=== PATIENT | female | born 1955 | race Caucasian/White ===

== ENCOUNTER 2021-03-31 12:17 | Inpatient (IN) | payer OTHER ==
[2021-03-31 14:41] LABS: HEMATOCRIT 35.7 % (32.4-45.2); HEMOGLOBIN 11.4 GM/dL (10.7-15.3); MCH 30.2 pg (25.7-33.7); MCHC 31.8 g/dl (32.0-36.0); MEAN CELL VOLUME 94.8 fl (80-96); MEAN PLT VOLUME 10.5 fl (7.5-11.1); PLATELET COUNT 178 10^3/uL (134-434); RBC 3.77 M/mm3 (3.60-5.2); RDW 17.3 % (11.6-15.6)
[2021-03-31 14:42] LABS: WHITE BLOOD COUNT 6.3 K/mm3 (4.0-10.0)
[2021-03-31] MEDS ORDERED: VANCOMYCIN 1 GM in D5W (PRE-DOCKED) 1,000 MG/250 ML IVPB ONE (14:48)
[2021-03-31 14:56] LABS: CHLORIDE 102 mmol/L (98-107); SODIUM 135 mmol/L (136-145)
[2021-03-31 14:58] LABS: CALCIUM 8.5 mg/dL (8.5-10.1); GLUCOSE,RANDOM 165 mg/dL (74-106)
[2021-03-31 14:59] LABS: ALBUMIN 3.4 g/dl (3.4-5.0); BLOOD UREA NITROGEN 16.9 mg/dL (7-18); CO2 30 mmol/L (21-32)
[2021-03-31 15:02] LABS: CREATININE 0.9 mg/dL (0.55-1.3); SGOT/AST 164 U/L (15-37); SGPT/ALT 147 U/L (13-61)
[2021-03-31 15:03] LABS: BILIRUBIN,TOTAL 0.5 mg/dL (0.2-1); TOT PROT 8.7 g/dl (6.4-8.2)
[2021-03-31 15:04] LABS: ALK PHOS 334 U/L (45-117)
[2021-03-31 15:09] LABS: ANION GAP 4 MMOL/L (8-16)
[2021-03-31 15:20] LABS: ERYTHROCYTE SEDIMENTATION RATE 60 mm/hr (0-30)
[2021-03-31 15:22] LABS: ANISOCYTOSIS 1+; MACROCYTOSIS 0; OVALOCYTE 1+; PLATELET ESTIMATE NORMAL
[2021-03-31] MEDS ORDERED: DAPTOMYCIN 500 MG in SODIUM CHLORIDE 50 ML IVPB ONE (15:23)
[2021-03-31] MEDS ORDERED: VANCOMYCIN 1 GRAM (PRE-DOCKED) 1,000 MG/250 ML BAG IVPB ONE (15:57)
[2021-03-31 17:29] LABS: CALCIUM 8.6 mg/dL (8.5-10.1)
[2021-03-31 17:30] LABS: ALBUMIN 3.2 g/dl (3.4-5.0); BLOOD UREA NITROGEN 17.8 mg/dL (7-18)
[2021-03-31 17:33] LABS: CREATININE 0.9 mg/dL (0.55-1.3)
[2021-03-31 17:34] LABS: BILIRUBIN,TOTAL 0.6 mg/dL (0.2-1); TOT PROT 7.8 g/dl (6.4-8.2)
[2021-03-31] MEDS: INSULIN SLIDING SCALE (NOVOLOG) 1 VIAL SQ SCH ×2 (18:59→22:25)
[2021-03-31] MEDS ORDERED: INSULIN SLIDING SCALE (NOVOLOG) 1 VIAL SQ ONE (19:01)
[2021-03-31] MEDS: HEPARIN NA (PORCINE) 5,000 UNITS/ML 1ML VIAL SQ SCH (22:25)
[2021-04-01 00:17] VITALS: BMI 23.4
[2021-04-01] MEDS: HEPARIN NA (PORCINE) 5,000 UNITS/ML 1ML VIAL SQ SCH (06:15)
[2021-04-01] MEDS: INSULIN SLIDING SCALE (NOVOLOG) 1 VIAL SQ SCH ×4 (06:17→22:26)
[2021-04-01 09:28] LABS: BASO % 0.5 % (0-2.0); EOS % 2.1 % (0-4.5); HEMATOCRIT 35.1 % (32.4-45.2); HEMOGLOBIN 11.1 GM/dL (10.7-15.3); LYMPH % 31.7 % (8-40); MCH 30.1 pg (25.7-33.7); MCHC 31.7 g/dl (32.0-36.0); MEAN CELL VOLUME 94.9 fl (80-96); MONO % 12.4 % (3.8-10.2); NEUT % 53.3 % (42.8-82.8); PLATELET COUNT 164 10^3/uL (134-434); RDW 16.9 % (11.6-15.6)
[2021-04-01 09:30] LABS: INR 1.13 (0.83-1.09); PROTHROMBIN TIME (PATIENT) 13.8 SEC (9.7-13.0)
[2021-04-01 09:32] LABS: ACTIVATED PTT 40.1 SECONDS (25.2-36.5)
[2021-04-01 10:02] LABS: BILIRUBIN,TOTAL 0.4 mg/dL (0.2-1); CREATININE 0.7 mg/dL (0.55-1.3); TOT PROT 7.7 g/dl (6.4-8.2)
[2021-04-01 10:06] LABS: ALBUMIN 3.3 g/dl (3.4-5.0); BLOOD UREA NITROGEN 16.9 mg/dL (7-18)
[2021-04-01 10:10] LABS: MAGNESIUM 1.9 mg/dL (1.8-2.4); PHOSPHOROUS 3.6 mg/dL (2.5-4.9)
[2021-04-01] MEDS: ENOXAPARIN NA (PORCINE) 40 MG/0.4 ML DISP.SYRIN SQ SCH (13:41)
[2021-04-01] MEDS: LOSARTAN POTASSIUM 50 MG TABLET PO SCH (15:07)
[2021-04-01] MEDS: HYDROCHLOROTHIAZIDE 12.5 MG CAPSULE (FP) PO SCH (15:08)
[2021-04-01] MEDS: FUROSEMIDE 20 MG TABLET (FP) PO SCH (15:08)
[2021-04-01] MEDS ORDERED: PT OWN MED DRAWER 7, Y5N ONE (17:49)
[2021-04-01] MEDS: SUCRALFATE 1 GM/10 ML UNIT DOSE CUPS PO SCH ×2 (17:55→22:25)
[2021-04-01] MEDS: DAPTOMYCIN 500 MG in SODIUM CHLORIDE 50 ML IVPB SCH (19:50)
[2021-04-02] MEDS: INSULIN SLIDING SCALE (NOVOLOG) 1 VIAL SQ SCH ×4 (06:27→21:09)
[2021-04-02] MEDS: SUCRALFATE 1 GM/10 ML UNIT DOSE CUPS PO SCH ×4 (06:28→21:09)
[2021-04-02 09:21] LABS: BASO % 0.7 % (0-2.0); EOS % 2.4 % (0-4.5); HEMATOCRIT 33.8 % (32.4-45.2); HEMOGLOBIN 11.1 GM/dL (10.7-15.3); LYMPH % 37.3 % (8-40); MCH 30.8 pg (25.7-33.7); MCHC 32.8 g/dl (32.0-36.0); MEAN CELL VOLUME 94.1 fl (80-96); MEAN PLT VOLUME 9.8 fl (7.5-11.1); MONO % 11.4 % (3.8-10.2); NEUT % 48.2 % (42.8-82.8); PLATELET COUNT 157 10^3/uL (134-434); RDW 17.2 % (11.6-15.6); WHITE BLOOD COUNT 3.8 K/mm3 (4.0-10.0)
[2021-04-02] MEDS: FUROSEMIDE 20 MG TABLET (FP) PO SCH (09:22)
[2021-04-02] MEDS: ENOXAPARIN NA (PORCINE) 40 MG/0.4 ML DISP.SYRIN SQ SCH (09:22)
[2021-04-02] MEDS: LOSARTAN POTASSIUM 50 MG TABLET PO SCH (09:22)
[2021-04-02] MEDS: LIPASE/PROTEASE/AMYLASE 36,000 UNIT CAPSULE PO SCH ×3 (09:23→18:03)
[2021-04-02] MEDS: HYDROCHLOROTHIAZIDE 12.5 MG CAPSULE (FP) PO SCH (09:23)
[2021-04-02 10:19] LABS: BLOOD UREA NITROGEN 13.8 mg/dL (7-18)
[2021-04-02 10:20] LABS: ALBUMIN 3.4 g/dl (3.4-5.0); MAGNESIUM 1.9 mg/dL (1.8-2.4)
[2021-04-02 10:28] LABS: CREATININE 0.6 mg/dL (0.55-1.3); PHOSPHOROUS 3.4 mg/dL (2.5-4.9)
[2021-04-02 10:30] LABS: TOT PROT 7.7 g/dl (6.4-8.2)
[2021-04-02 14:10] LABS: HEP B CORE AB, TOT Negative (Negative)
[2021-04-02] MEDS: DAPTOMYCIN 500 MG in SODIUM CHLORIDE 50 ML IVPB SCH (18:03)
[2021-04-03] MEDS: SUCRALFATE 1 GM/10 ML UNIT DOSE CUPS PO SCH ×2 (06:12→11:45)
[2021-04-03] MEDS: INSULIN SLIDING SCALE (NOVOLOG) 1 VIAL SQ SCH ×2 (06:13→11:45)
[2021-04-03 08:52] LABS: BASO % 0.4 % (0-2.0); HEMATOCRIT 36.5 % (32.4-45.2); HEMOGLOBIN 11.7 GM/dL (10.7-15.3); LYMPH % 37.2 % (8-40); MCH 30.3 pg (25.7-33.7); MEAN CELL VOLUME 94.6 fl (80-96); MEAN PLT VOLUME 9.8 fl (7.5-11.1); NEUT % 48.4 % (42.8-82.8); PLATELET COUNT 178 10^3/uL (134-434); RBC 3.86 M/mm3 (3.60-5.2); RDW 16.5 % (11.6-15.6); WHITE BLOOD COUNT 3.2 K/mm3 (4.0-10.0)
[2021-04-03 09:25] LABS: ALBUMIN 3.6 g/dl (3.4-5.0)
[2021-04-03 09:26] LABS: BLOOD UREA NITROGEN 18.1 mg/dL (7-18); MAGNESIUM 1.9 mg/dL (1.8-2.4)
[2021-04-03] MEDS ORDERED: PT OWN MED DRAWER 7, Y5N ONE ×2 (09:26→11:41)
[2021-04-03] MEDS: LOSARTAN POTASSIUM 50 MG TABLET PO SCH (09:27)
[2021-04-03] MEDS: ENOXAPARIN NA (PORCINE) 40 MG/0.4 ML DISP.SYRIN SQ SCH (09:27)
[2021-04-03] MEDS: LIPASE/PROTEASE/AMYLASE 36,000 UNIT CAPSULE PO SCH ×2 (09:27→11:44)
[2021-04-03] MEDS: FUROSEMIDE 20 MG TABLET (FP) PO SCH (09:27)
[2021-04-03] MEDS: HYDROCHLOROTHIAZIDE 12.5 MG CAPSULE (FP) PO SCH (09:27)
[2021-04-03 09:29] LABS: CREATININE 0.8 mg/dL (0.55-1.3); PHOSPHOROUS 3.6 mg/dL (2.5-4.9)
[2021-04-03 09:30] LABS: BILIRUBIN,TOTAL 0.3 mg/dL (0.2-1); TOT PROT 8.2 g/dl (6.4-8.2)
[2021-04-03] MEDS: DAPTOMYCIN 500 MG in SODIUM CHLORIDE 50 ML IVPB SCH (15:12)
[2021-04-03 15:34] VITALS: BP 140/73; PULSE 90; TEMP 98.1
== END 2021-04-03 16:35 | disposition home or self-care (01) | DRG 344 ==
LOC: JER 12:17 → JERBED 14:47 → J5S 20:55 → UNDODISIN 04-03 14:03
PROVIDERS: ATTEND Internal Medicine
DX: E11.69 Type 2 diabetes mellitus with other specified complication (principal); E11.621 Type 2 diabetes mellitus with foot ulcer; L97.518 Non-pressure chronic ulcer of other part of right foot with other specified severity; L03.115 Cellulitis of right lower limb; C25.9 Malignant neoplasm of pancreas, unspecified; I10 Essential (primary) hypertension; E78.5 Hyperlipidemia, unspecified; E87.5 Hyperkalemia; K21.9 Gastro-esophageal reflux disease without esophagitis; M86.8X7 Other osteomyelitis, ankle and foot
CPT/HCPCS: 11042; 36415; 71045-TC-FY; 73630-TC-RT-FY; 76705-TC; 80053; 82962; 83036; 83735; 84100; 85025; 85610; 85651; 85730; 86140; 86704; 86706; 86707; 86708; 86709; 86803; 87340; 93005; 93010; 97116-GP; 97162-GP; 99285-25; C9803; J0878; J1644; U0003; U0005